=== PATIENT | female | born 1985 | race Caucasian/White ===

== ENCOUNTER 2022-05-02 22:08 | Emergency (ER) | payer MEDICAID | END 2022-05-03 00:09 | disposition home or self-care (01) | LOC: NAV ERS 22:08 | DX: S93.402A Sprain of unspecified ligament of left ankle, initial encounter (principal); S83.92XA Sprain of unspecified site of left knee, initial encounter; Z79.899 Other long term (current) drug therapy; X50.1XXA Overexertion from prolonged static or awkward postures, initial encounter ==